=== PATIENT | male | born 1930 | race Caucasian/White ===

== ENCOUNTER 2019-09-22 13:02 | Emergency (ER) | payer MEDICARE ==
[2019-09-22] MEDS ORDERED: ETOMIDATE 20 MG/10 ML VIAL IV ONE (13:03)
[2019-09-22] MEDS ORDERED: ROCURONIUM 50 MG/5 ML VIAL IV ONE (13:03)
--- OUTSIDE RECORDS SUMMARY | 2019-09-22 13:08 | XMS REPORT ---
:1930 Author Organization eClinicalWorks Care Team Providers Name Role Phone Elisa Joe Provider Role Unavailable Allergies, Adverse Reactions, Alerts Substance Reaction Event Type N.K.D.A. Info Not Available Non Drug Allergy Problems Problem Type Condition Code Onset Dates Condition Statu s Assessment Pain in right leg M79.604 Active Assessment Elevated blood pressure reading R03.0 Active without diagnosis of hypertension Assessment Pain in left leg M79.605 Active Assessment Other chronic pain G89.29 Active Problem Other chronic pain G89.29 Active Problem Pain in right leg M79.604 Active Problem Low back pain M54.5 Active Assessment Low back pain M54.5 Active Problem Pain in left leg M79.605 Active Problem Elevated blood pressure reading R03.0 Active without diagnosis of hypertension Medications Medication Code Code Instructions Start End Status Dosage System Date Date Cyclobenzaprine [facility] 52874202731 5 MG Orally AugustOctober 17, Active 1 tablet HCl Once a day in 2019 as needed evening for pain Meloxicam ND 52724808563 7.5 MG Orally August Active 1-2 Once a day; max 2019 30, tablets of 15 mg per 2020 as needed day for pain; take with food or milk Enalapril Maleate ND 95136099049 10 MG Orally August 1 tablet Once a day as 2019 needed for BP > or = 150/90 Results No Known Results Summary Purpose eClinicalWorks Submission
--- OUTSIDE RECORDS SUMMARY | 2019-09-22 13:08 | XMS REPORT ---
:1930 Author Organization eClinicalWorks Care Team Providers Name Role Phone Elisa Joe Provider Role Unavailable Allergies No Known Allergies Problems Problem Type Condition Code Onset Dates Condition Statu s Assessment Essential hypertension I10 Activ e Problem Low back pain M54.5 Active Problem Other chronic pain G89.29 Active Problem Essential hypertension I10 Activ e Problem Elevated blood pressure reading R03.0 Active without diagnosis of hypertension Problem Pain in right leg M79.604 Active Problem Pain in left leg M79.605 Active Medications Medication Code Code Instructions Start End Status Dosage System Date Date Cyclobenzaprine ND 57922824578 5 MG Orally AugustOctober 17, Active 1 tablet HCl Once a day in 2019 as needed evening for pain Meloxicam ND 97937341833 7.5 MG Orally August Active 1-2 Once a day; max 2019 30, tablets of 15 mg per 2019 as needed day for pain; take with food or milk Enalapril Maleate ND 31117895584 20 MG Orally August 1 tablet Once a day for 2019 high blood pressure Results No Known Results Summary Purpose eClinicalWorks Submission
--- OUTSIDE RECORDS SUMMARY | 2019-09-22 13:08 | XMS REPORT ---
:1930 Author Organization [facility] t Address [address] [place] [address] Care Team Providers Name Role Phone Unavailable Unavailable Unavailable Problems Condition Condition Condition Status Onset Resolution Last Treatin g Comments Name Details Category Date Date Treatment Clinician Date Pain in Pain in Problem Active right leg right leg Elevated Elevated Problem Active blood blood pressure pressure reading reading without without diagnosis diagnosis of of hypertensio hypertensio n n Pain in Pain in Problem Active left leg left leg Other Other Problem Active chronic chronic pain pain Low back Low back Problem Active pain pain Essential Essential Problem Active hypertensio hypertensio n n Allergies, Adverse Reactions, Alerts This patient has no known allergies or adverse reactions. Medications Ordered Filled Start Stop Current Ordering Indication Dosage Frequency Signature Comments Components Medication Medication Date Date Medication? Clinician (SIG) Name Name Enalapril Enalapril Yes Elisa 1 tablet Maleate Maleate 08-18 Millender 00:00: 00 Meloxicam Meloxicam 2019- Yes Elisa 1-2 08-18 07-30 Millender tablets as 00:00: 00:00 needed for 00 :00 pain; take with food or milk Cyclobenzap Cyclobenzap 2019- Yes Elisa 1 table t rine HCl rine HCl 08-18 05-31 Millender as needed 00:00: 00:00 for pain 00 :00 Encounters Start End Encounter Admission Attending Care Care Encounter Date/Time Date/Time Type Type Clinicians Facility Department ID 2019-09-18 2019-09-18 [id number] 10:11:00 10:11:00 [facility] Medicine Medicine 2019-08-19 2019-08-19 [facility] [id number] 15:15:00 15:15:00 [facility] Medicine
[2019-09-22 14:14] LABS: Absolute Lymphocytes (CBC) 0.7 K/uL (0.7-4.9); Basophils % 0.1 % (0-1.3); Hematocrit 40.5 % (39.6-49.0); Lymphocytes % 3.7 % (15.3-44.8); MPV 8.4 fL (7.6-11.3); Protime INR 1.15; RBC Red Blood Cell Count 4.71 M/uL (4.33-5.43)
--- NOTE | 2019-09-22 14:27 | RAD REPORT ---
EXAM DESCRIPTION: CT - Head C Spine Mpr Wo Con - 09/22/2019 2:05 pm CLINICAL HISTORY: Head and neck injury status post fall. Head and neck pain COMPARISON: None. TECHNIQUE: Computed axial tomography of the head and cervical spine was obtained. Sagittal and coronal reconstruction was performed. All CT scans are performed using dose optimization technique as appropriate and may include automated exposure control or mA/KV adjustment according to patient size. FINDINGS: A 4 centimeter bleed within predominately the cerebellar vermis. The fourth ventricle is compressed. No hydrocephalus. 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 An acute cervical fracture is not visualized. 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 No dislocatio n is noted. 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 September 22, 2019
[2019-09-22 14:29] LABS: Albumin 3.8 g/dL (3.4-5.0); Bilirubin Total 0.6 mg/dL (0.2-1.0); Potassium 3.8 mmol/L (3.5-5.1); Protein, Total 7.9 g/dL (6.4-8.2); Troponin (Emerg Dept Use Only) 0.37 ng/mL (0.0-0.045)
[2019-09-22] MEDS ORDERED: RSI MEDICATION KIT IV ONE (14:40)
[2019-09-22] MEDS ORDERED: propofoL 1,000 MG/100 ML VIAL IV ONE (14:41)
[2019-09-22] MEDS ORDERED: NA CHLORIDE 0.9% 1,000 ML ONE (14:41)
[2019-09-22 14:49] LABS: Blood Morphology Comment NOT SEEN (NOT SEEN); Platelet Estimate ADEQ; Urine White Blood Cell Casts OK
[2019-09-22] MEDS ORDERED: FENTANYL CITR 100 MCG/2 ML ONE ×2 (14:51→15:06)
--- NOTE | 2019-09-22 15:09 | ER ---
Nurse's Notes [facility] Name: Amy Gifford Age: 89 yrs Sex: Male : 1930 Arrival Date: 09/22/2019 Time: 13:06 Bed 5 Private MD: Diagnosis: Intraparanchymal Hemmorhage. Presentation: 09/21 13:06 Chief complaint: EMS states: Found on floor today by neighbors, they called EMS. ll1 Patient has had weakness and generalized malaise for 2 days. Multiple abrasions noted to extremities. No fever or cough. Blood glucose 144, BP 190/96. IV R AC with 200 ml NS bolus given en route. Coronavirus screen: Proceed with normal triage. Patient denies a cough. Patient denies shortness of breath or difficulty breathing. Patient denies measured and/or subjective temperature greater than 100.4F prior to today's visit. Patient denies travel on a cruise ship or to a country the [facility] currently lists as an affected area. Patient denies contact with known and/or suspected case of COVID-19. Ebola Screen: Patient denies travel to an Ebola-affected area in the 21 days before illness onset. Initial Sepsis Screen: Does the patient meet any 2 criteria? No. Patient's initial sepsis screen is negative. Does the patient have a suspected source of infection? No. Patient's initial sepsis screen is negative. Risk Assessment: Do you want to hurt yourself or someone else? Patient reports no desire to harm self or others. Onset of symptoms was September 21, 2019. 13:06 Method Of Arrival: EMS ll1 13:06 Acuity: KARLENE 3 ll1 14:45 Acuity: KARLENE 1 hb Historical: - Allergies: 13:10 No Known Allergies; ll1 - PMHx: 13:10 Hypertension; ll1 - Immunization history:: Adult Immunizations unknown. - Social history:: Smoking status: Patient reports the use of cigarette tobacco products, smokes one pack cigarettes per day. Patient/guardian denies using alcohol, street drugs. Screenin:45 Abuse screen: Denies threats or abuse. Denies injuries from another. Nutritional ss screening: No deficits noted. Tuberculosis screening: Never had TB. Fall Risk Fall in past 12 months (25 points). No secondary diagnosis (0 pts). IV access (20 points). Ambulatory Aid- None/Bed Rest/Nurse Assist (0 pts). Gait- Normal/Bed Rest/Wheelchair (0 pts) Mental Status- Overestimates/Forgets Limitations (15 pts.). Assessment: 13:45 General: Appears uncomfortable, Behavior is calm, cooperative, Reports feeling ill for ss 1-2 days, fatigue for 1-2 days, Denies fever, chills. Pain: Denies pain. Neuro: Level of Consciousness is awake, alert, obeys commands, Oriented to place, time, situation, Game Advisor are weak bilaterally Speech is normal, Pupils are PERRLA. Neuro: Denies blurred vision dizziness, difficulty swallowing, numbness headache photophobia. Cardiovascular: Pulses are palpable in right radial artery and left radial artery. Respiratory: Airway is patent Respiratory effort is even, unlabored, Respiratory pattern is regular, symmetrical, Denies cough, shortness of breath labored breathing, pain with respiration, pain with cough, pain with movement. GI: Reports diarrhea, nausea, vomiting, since x 2 days. : No signs and/or symptoms were reported regarding the genitourinary system. EENT: Nares are clear Oral mucosa is moist. Derm: Skin temperature is warm Wound noted Other: skin tear noted to L forearm. Musculoskeletal: Circulation, motion, and sensation intact. Range of motion: intact in all extremities, Swelling absent. 14:25 Reassessment: Dr. Rowe at bedside discussing with patient his CT results and plan of ss care/ transfer. Pt agrees to intubation and transfer to medical center for further evaluation and care. Spoke with Daughter Yee, who reports that she agrees to the intubation and verbalizes understanding reason for transfer. 14:48 Reassessment: Pt intubated at this time on first attempt. Pt is now intubated and ss sedated. Awaiting for acceptance at [facility]. Respiratory: Airway is patent Respiratory effort is even, unlabored, Respiratory pattern is regular, symmetrical, Breath sounds are clear bilaterally. Derm: Skin is pink, warm \T\ dry. 15:15 Reassessment: [facility] at bedside. Report given. Cardene drip started by [facility] ss and sent with patient during transport. Derm: Skin is pink, warm \T\ dry. Vital Signs: 13:06 BP 176 / 93; Pulse 88; Resp 18; Temp 97.7(O); Pain 0/10; ll1 14:46 BP 191 / 91; Pulse 85; Resp 14; Pulse Ox 100% on R/A; ss 14:52 BP 185 / 108; Pulse 122; Resp 21; Pulse Ox 100% on ETT ambu; ss 14:57 Weight 70 kg; ss 15:00 BP 177 / 99; Pulse 113; Resp 29; Pulse Ox 100% on ETT ambu; ss 15:10 BP 195 / 113; Pulse 100; Resp 22 A; Pulse Ox 100% on ETT ambu; ss ED Course: 13:06 Patient arrived in ED. ll1 13:09 Triage completed. ll1 13:10 Arm band placed on Patient placed in an exam room, on a stretcher, on pulse oximetry. ll1 13:30 Missed attempt(s): 20 gauge in right antecubital area. Bleeding controlled, band aid ss applied, catheter tip intact. 13:43 Jorge Alberto Rowe MD is Attending Physician. [facility] 13:45 Patient has correct armband on for positive identification. Bed in low position. Call ss light in reach. 13:46 Paola Oliveira, JULIANNE is Primary Nurse. jl7 14:06 CT Head C Spine In Process Unspecified. EDMS 14:29 Inserted saline lock: 18 gauge in left antecubital area, using aseptic technique. Blood ss collected. 14:48 Assisted provider with intubation using 7.5 mm ETT via oral route. ET tube secured at ss 23cm at the lips. Set up intubation tray. Intubated by Jorge Alberto Rowe MD Placement verified by CO2 detector w/ + color change, auscultating bilateral breath sounds, Patient tolerated PT sedated. 14:52 NGT: inserted 16 Fr. via left nare. verified placement of air over stomach, verified ss return of gastric contents, to intermittent suction. Returned gastric contents. Patient tolerated sedated. 15:03 CXR XRAY In Process Unspecified. EDMS 15:10 Bailey cath inserted, using sterile technique, 16 Fr., by ED staff, balloon inflated, to ss gravity drainage. 15:29 Patient transferred, IV remains in place. ss Administered Medications: 14:46 Drug: Propofol 5 mcg/kg/min Route: IV; Rate: calculated rate; Site: right antecubital; 15:10 Follow up: Response: No adverse reaction; IV Status: Infusion continued upon transfer jl7 14:46 Drug: Rocuronium 100 mg Route: IVP; Site: right antecubital; ss 14:48 Follow up: Response: No adverse reaction jl7 14:46 Drug: Etomidate 20 mg Route: IVP; Site: right antecubital; ss 14:48 Follow up: Response: No adverse reaction jl7 14:51 Drug: fentaNYL (PF) 100 mcg Route: IVP; Site: right antecubital; ss 15:00 Follow up: Response: No adverse reaction jl7 15:08 Drug: fentaNYL (PF) 100 mcg Route: IVP; Site: right antecubital; ss 15:10 Follow up: Response: No adverse reaction jl7 Outcome: 15:08 ER care complete, transfer ordered by . [facility] 15:29 Transferred by helicopter to [facility]. 15:29 Condition: stable 15:29 Instructed on no drinking with medication. 15:30 Patient left the ED. ss Signatures: Dispatcher [employer] EDTX María Yadav RN RN Alexandra Park RN RN Paola Oliveira RN RN jl7 Jorge Alberto Rowe MD MD ps1 Maria De Jesus Reese RN RN ll1 Corrections: (The following items were deleted from the chart) 13:11 13:06 Chief complaint: EMS states: Found on floor today by neighbors, they called EMS. ll1 Patient has had weakness and generalized malaise for 2 days. Multiple abrasions noted to extremities. No fever or cough. ll1 15:23 13:59 Acuity: KARLENE 1 hb hb 17:43 15:00 BP 177 / 99; Pulse 113bpm; Resp 29bpm; Pulse Ox 100% RA; jl7 ss
--- NOTE | 2019-09-22 15:09 | EDPHYS ---
Physician Documentation [facility] Name: Amy Gifford Age: 89 yrs Sex: Male : 1930 Arrival Date: 09/22/2019 Time: 13:06 Bed 5 Private MD: ED Physician Jorge Alberto Rowe HPI: 09/21 14:19 This 89 yrs old Male presents to ER via EMS with complaints of General ps1 Weakness. 14:19 Patient reportedly found down although he does not remember. He states that he has had ps1 generalized fatigue for the last week. No FND but has skin tears and abrasions on arms cw fall. Appears to have dementia. Does not attest to pain. . Historical: - Allergies: 13:10 No Known Allergies; ll1 - PMHx: 13:10 Hypertension; ll1 - Immunization history:: Adult Immunizations unknown. - Social history:: Smoking status: Patient reports the use of cigarette tobacco products, smokes one pack cigarettes per day. Patient/guardian denies using alcohol, street drugs. ROS: 15:02 Unable to obtain ROS due to altered mental status. ps1 Exam: 15:02 Constitutional: This is a well developed, well nourished patient who is awake, alert, ps1 and in no acute distress. Head/Face: Normocephalic, atraumatic. Chest/axilla: Normal chest wall appearance and motion. Nontender with no deformity. No lesions are appreciated. Cardiovascular: Regular rate and rhythm. No gallops, murmurs, or rubs. Normal PMI, no JVD. No pulse deficits. Respiratory: Lungs have equal breath sounds bilaterally, clear to auscultation and percussion. No rales, rhonchi or wheezes noted. No increased work of breathing, no retractions or nasal flaring. MS/ Extremity: Pulses equal, no cyanosis. Neurovascular intact. Full, normal range of motion. 15:02 Neuro: Orientation: is normal, Mentation: is normal, slowed during eval. Vital Signs: 13:06 BP 176 / 93; Pulse 88; Resp 18; Temp 97.7(O); Pain 0/10; ll1 14:46 BP 191 / 91; Pulse 85; Resp 14; Pulse Ox 100% on R/A; ss 14:52 BP 185 / 108; Pulse 122; Resp 21; Pulse Ox 100% on ETT ambu; ss 14:57 Weight 70 kg; ss 15:00 BP 177 / 99; Pulse 113; Resp 29; Pulse Ox 100% on ETT ambu; ss 15:10 BP 195 / 113; Pulse 100; Resp 22 A; Pulse Ox 100% on ETT ambu; ss Procedures: 14:59 Intubation: Intubated orally using # 4 Eugene blade with 7.5 mm ETT. was successful ps1 on first attempt. Ventilated with Ambu bag. Tube secured with ETT garcia Placement verified by CXR, CO2 detector with (+) color change, Patient tolerated well. MDM: 13:49 Patient medically screened. ps1 15:02 Data reviewed: vital signs, nurses notes, lab test result(s), radiologic studies, and ps1 as a result, I will transfer patient to Neuro ICU. Counseling: I had a detailed discussion with the patient and/or guardian regarding: the historical points, exam findings, and any diagnostic results supporting the discharge/admit diagnosis, radiology results, the need to transfer to another facility, Need for intubation. ED course: Patient became hypersomnolent. Concern for MSC. Intubated patient with etomidate and rocuronium. Patient tolerated procedure well. Placed on propofol and gave 200mcg fentanyl for post intubation sedation. BP goal < 150. Pt to be transferred by helicopter to [facility] Neuro ICU. . 09/21 13:49 Order name: CBC with Diff ps1 09/21 13:49 Order name: CMP ps1 09/21 13:49 Order name: CXR XRAY ps1 09/21 13:49 Order name: PT-INR; Complete Time: 14:27 ps1 09/21 13:49 Order name: Troponin (emerg Dept Use Only) ps1 09/21 14:49 Order name: CBC Smear Scan EDMS 09/21 13:49 Order name: CT Head C Spine ps1 Administered Medications: 14:46 Drug: Propofol 5 mcg/kg/min Route: IV; Rate: calculated rate; Site: right antecubital; ss 15:10 Follow up: Response: No adverse reaction; IV Status: Infusion continued upon transfer jl7 14:46 Drug: Rocuronium 100 mg Route: IVP; Site: right antecubital; ss 14:48 Follow up: Response: No adverse reaction jl7 14:46 Drug: Etomidate 20 mg Route: IVP; Site: right antecubital; ss 14:48 Follow up: Response: No adverse reaction jl7 14:51 Drug: fentaNYL (PF) 100 mcg Route: IVP; Site: right antecubital; ss 15:00 Follow up: Response: No adverse reaction jl7 15:08 Drug: fentaNYL (PF) 100 mcg Route: IVP; Site: right antecubital; ss 15:10 Follow up: Response: No adverse reaction jl7 Disposition: 15:12 Chart complete. ps1 Disposition: 09/22/19 15:08 Transfer ordered to [facility]. Diagnosis is Intraparanchymal Hemmorhage. . - Reason for transfer: Higher level of care. - Accepting physician is Marlon. - Condition is Critical. - Problem is new. - Symptoms are unchanged. Critical care time excluding procedures: 15:02 Critical care time: Bedside Care: 35 minutes, Consultation: 10 minutes. Total time: 45 ps1 minutes Signatures: Dispatcher [employer] EDMaría Hensley RN RN Jorge Alberto Rowe MD MD ps1 Maria De Jesus Reese RN RN ll1 Paola Oliveira RN jl7 Corrections: (The following items were deleted from the chart) 15:30 15:08 09/22/2019 15:08 Transfer ordered to [facility]. ss Diagnosis is Intraparanchymal Hemmorhage. . Reason for transfer: Higher level of care. Accepting physician is Marlon. Condition is Critical. Problem is new. Symptoms are unchanged. ps1
--- NOTE | 2019-09-22 15:13 | RAD REPORT ---
EXAM DESCRIPTION: Amara Single View09/22/2019 3:02 pm CLINICAL HISTORY: Cough COMPARISON: 2018 FINDINGS: The lungs appear clear of acute infiltrate. The heart is normal size. Endotracheal tube has its tip well above the balbir. Nasogastric tube has been placed. The tip is not well seen secondary to the film being underexposed. It could lie within the distal esophagus or stomach
[2019-09-22] MEDS ORDERED: Nicardipine/NS 25 MG/250 ML KIT IV ONE (15:25)
[2019-09-22 15:42] VITALS: TEMP 97.7
[2019-09-22 15:46] VITALS: BP 177/99; O2SAT 100
== END 2019-09-22 15:30 | disposition short-term general hospital (02) ==
LOC: ER 13:02
DX: I61.8 Other nontraumatic intracerebral hemorrhage (principal); I10 Essential (primary) hypertension; F03.90 Unspecified dementia, unspecified severity, without behavioral disturbance, psychotic disturbance, mood disturbance, and anxiety; F17.210 Nicotine dependence, cigarettes, uncomplicated; W19.XXXA Unspecified fall, initial encounter; Y93.9 Activity, unspecified; Y92.009 Unspecified place in unspecified non-institutional (private) residence as the place of occurrence of the external cause
CPT/HCPCS: 96365; 85025; 36415; 85610; 84484; 80053; 70450; 72125; 71045; 31500; 51702; 96375; 99285; J2704; J3010 ×2; J7030